=== PATIENT | female | born 1995 | race Caucasian/White ===

== ENCOUNTER 2018-01-08 13:31 | Emergency (ER) | payer OTHER ==
[~2018-01-08] VITALS: Ht 172.7 cm; Wt 61.4 kg
[~2018-01-08 13:31] MED LIST: RITALIN PO
[2018-01-08] MEDS ORDERED: IBUPROFEN 600 MG TABLET PO ONE (14:45)
[2018-01-08 15:15] VITALS: BP 120/80
== END 2018-01-08 16:01 | disposition home or self-care (01) ==
LOC: EMS 13:32
DX: S62.306A Unspecified fracture of fifth metacarpal bone, right hand, initial encounter for closed fracture (principal); Y04.0XXA Assault by unarmed brawl or fight, initial encounter; Y93.89 Activity, other specified; Y92.89 Other specified places as the place of occurrence of the external cause; Y99.8 Other external cause status

== ENCOUNTER 2019-11-01 11:15 | Inpatient (IN) | payer MEDICAID, OTHER ==
[~2019-11-01] VITALS: Ht 170.2 cm; Wt 93.0 kg
[2019-11-01] MEDS ORDERED: DULO30CA96 PO (11:24)
[2019-11-01] MEDS ORDERED: QUET100T PO (11:24)
[2019-11-01] MEDS ORDERED: PRAZ2 PO (11:24)
[2019-11-01] MEDS ORDERED: GABA-1181 PO (11:24)
[2019-11-01] MEDS ORDERED: CefTRIAXone SODIUM 1 GM/VIAL IM ONE (11:45)
[2019-11-01] MEDS ORDERED: AZITHROMYCIN 500 MG TABLET PO ONE (11:45)
[2019-11-01] MEDS ORDERED: ONDANSETRON HCL 4 MG TABLET PO ONE (11:45)
[2019-11-01] MEDS ORDERED: LIDOCAINE/PF 1% 2 ML VIAL ONE (11:57)
[2019-11-01 12:15] LABS: BASOPHILS % (AUTO) 0.4 % (0.0-2.0); EOSINOPHILS % (AUTO) 0.4 % (1.0-6.0); HEMATOCRIT 38.2 % (36-46); HEMOGLOBIN 12.5 g/dL (12.0-16.0); MEAN CORPUSCULAR HEMOGLOBIN 29.5 pg (26.0-34.0); MEAN CORPUSCULAR HGB CONC 32.7 G/dL (31.0-37.0); MEAN CORPUSCULAR VOLUME 90 fL (80-100); MONOCYTES # (AUTO) 0.4 K/uL (0.1-1.0); MONOCYTES % (AUTO) 7.4 % (2.0-9.0); NEUTROPHILS # (AUTO) 3.9 K/uL (1.8-7.7); NEUTROPHILS % (AUTO) 73.8 % (40.0-70.0); PLATELET COUNT (AUTO) 354 K/uL (150-450); RED BLOOD CELL COUNT(AUTO) 4.22 MIL/uL (4.00-5.20); RED CELL DISTRIBUTION WIDTH 15.8 % (11.5-14.5)
[2019-11-01 12:25] LABS: ANION GAP 12 mmol/L (8-16); CALCIUM, TOTAL 9.3 mg/dL (8.8-10.5); CARBON DIOXIDE 28 mmol/L (22-29); CHLORIDE 98 mmol/L (98-107); CREATININE 1.08 mg/dL (0.60-1.30); GLOMERULAR FILTR. RATE CALC > 60 mL/min (>60); GLUCOSE,RANDOM 104 mg/dL (70-110); POTASSIUM 3.7 mmol/L (3.5-5.1); SODIUM SERUM 138 mmol/L (136-145); UREA NITROGEN, BLOOD 6 mg/dL (7-18)
[2019-11-01 12:39] LABS: ALANINE AMINOTRANSFERASE 24 U/L (12-78); ALBUMIN 4.1 g/dL (3.4-5.0); ALKALINE PHOSPHATASE 77 U/L (46-116); ASPARTATE AMINOTRANSFERASE 22 U/L (15-37); BILIRUBIN,TOTAL 0.3 mg/dL (0.1-1.0); HCG,QUANTITATIVE < 1 mIU/mL (0-6); TOTAL PROTEIN, SERUM 8.3 g/dL (6.4-8.2)
[2019-11-01 14:11] LABS: AMPHET/METH SCREEN,URINE POSITIVE (NEGATIVE); BARBITURATE SCREEN, URINE NEGATIVE (NEGATIVE); BENZODIAZEPINES SCREEN,URINE NEGATIVE (NEGATIVE); CANNABINOID SCREEN,URINE POSITIVE (NEGATIVE); COCAINE SCREEN,URINE NEGATIVE (NEGATIVE); METHADONE SCREEN, URINE NEGATIVE (NEGATIVE); OPIATE SCREEN,URINE NEGATIVE (NEGATIVE)
[2019-11-01 14:12] LABS: PHENCYCLIDINE SCREEN,URINE NEGATIVE (NEGATIVE)
[2019-11-01] MEDS ORDERED: PROMETHAZINE HCL 25 MG TABLET PO PRN (15:15)
[2019-11-01] MEDS ORDERED: ACETAMINOPHEN 325 MG TABLET PO PRN (15:15)
[2019-11-01] MEDS ORDERED: HydrOXYzine PAMOATE 50 MG CAPSULE PO PRN (15:15)
[2019-11-01] MEDS ORDERED: TUBERCULIN, PURIFIED PROTEIN DERIVATIVE 5 TU/0.1 ML SYRINGE ID ONE (15:15)
[2019-11-01] MEDS ORDERED: MAGNESIUM HYDROXIDE SUSPENSION 30 ML UDCUP PO PRN (15:15)
[2019-11-01] MEDS ORDERED: MAG HYDROX/AL HYDROX/SIMETH ES 30 ML SUSPENSION UDCUP PO PRN (15:15)
[2019-11-01] MEDS ORDERED: GuaiFENesin/D-METHORPHAN [SUGAR-FREE] 200-20MG/10 ML SYRUP UDCUP PO PRN (15:15)
[2019-11-01] MEDS ORDERED: OLANZapine 5 MG RAPDIS TABLET PO PRN (15:15)
[2019-11-01] MEDS ORDERED: ZOLPIDEM TARTRATE 10 MG TABLET PO PRN (15:15)
[2019-11-01] MEDS ORDERED: LOPERAMIDE HCL 2 MG CAPSULE PO PRN (15:15)
[2019-11-01] MEDS ORDERED: LORazepam 2 MG TABLET PO PRN (15:15)
[2019-11-01] MEDS: THIAMINE 100 MG TABLET PO SCH (16:21)
[2019-11-01 17:22] VITALS: BP 127/91
[2019-11-01 17:43] VITALS: BP 127/91
[2019-11-01] MEDS: NICOTINE 21 MG/24 HOUR PATCH TD SCH (20:05)
[2019-11-01] MEDS ORDERED: OLANZapine 5 MG RAPDIS TABLET PO SCH (21:00)
[2019-11-01] MEDS ORDERED: QUEtiapine FUMARATE 25 MG TABLET PO PRN (21:00)
[2019-11-01] MEDS: PRAZOSIN HCL 2 MG CAPSULE PO SCH (21:53)
[2019-11-01] MEDS: QUEtiapine FUMARATE 100 MG TABLET PO SCH (21:54)
[2019-11-01] MEDS: GABAPENTIN 300 MG CAPSULE PO SCH (21:54)
[2019-11-02 02:04] VITALS: BP 125/85
[2019-11-02 03:31] VITALS: BP 125/85
[2019-11-02 08:58] LABS: HEMOGLOBIN A1C 5.4 % (3.8-5.6)
[2019-11-02] MEDS: NICOTINE 21 MG/24 HOUR PATCH TD SCH (09:00)
[2019-11-02 09:09] VITALS: BP 102/61
[2019-11-02 09:13] LABS: CHOL/HDL RATIO 3.8 (3.9-5.7); FREE T4 (FREE THYROXINE) 1.2 ng/dL (0.76-1.46); THYROID STIMULATING HORMONE 0.43 uIU/mL (0.36-3.74)
[2019-11-02] MEDS: MULTIVITAMINS WITH MINERALS, THERAPEUTIC TABLET PO SCH (10:59)
[2019-11-02] MEDS: THIAMINE 100 MG TABLET PO SCH ×2 (10:59→16:29)
[2019-11-02] MEDS: FLUoxetine HCL 20 MG CAPSULE PO SCH (10:59)
[2019-11-02] MEDS: NALTREXONE HCL 50 MG TABLET PO SCH (10:59)
[2019-11-02] MEDS: GABAPENTIN 300 MG CAPSULE PO SCH ×4 (10:59→20:22)
[2019-11-02] MEDS: FOLIC ACID 1 MG TABLET PO SCH (10:59)
[2019-11-02] MEDS: QUEtiapine FUMARATE 25 MG TABLET PO SCH ×3 (11:00→16:30)
[2019-11-02 16:00] VITALS: BP 106/53
[2019-11-02] MEDS: PRAZOSIN HCL 2 MG CAPSULE PO SCH (20:22)
[2019-11-02] MEDS: QUEtiapine FUMARATE 100 MG TABLET PO SCH (20:22)
[2019-11-03 08:11] VITALS: BP 119/78
[2019-11-03] MEDS: NICOTINE 21 MG/24 HOUR PATCH TD SCH ×2 (09:00→17:25)
[2019-11-03] MEDS: NALTREXONE HCL 50 MG TABLET PO SCH (10:43)
[2019-11-03] MEDS: THIAMINE 100 MG TABLET PO SCH ×2 (10:43→17:16)
[2019-11-03] MEDS: FOLIC ACID 1 MG TABLET PO SCH (10:43)
[2019-11-03] MEDS: FLUoxetine HCL 20 MG CAPSULE PO SCH (10:43)
[2019-11-03] MEDS: MULTIVITAMINS WITH MINERALS, THERAPEUTIC TABLET PO SCH (10:44)
[2019-11-03] MEDS: GABAPENTIN 400 MG CAPSULE PO SCH ×3 (10:44→17:16)
[2019-11-03] MEDS: QUEtiapine FUMARATE 25 MG TABLET PO SCH ×3 (10:44→17:16)
[2019-11-03 16:13] VITALS: BP 115/75
[2019-11-03] MEDS: QUEtiapine FUMARATE 100 MG TABLET PO SCH (21:29)
[2019-11-03] MEDS: PRAZOSIN HCL 2 MG CAPSULE PO SCH (21:29)
[2019-11-03] MEDS: GABAPENTIN 300 MG CAPSULE PO SCH (21:29)
[2019-11-04 08:00] VITALS: BP 112/70
[2019-11-04] MEDS: MULTIVITAMINS WITH MINERALS, THERAPEUTIC TABLET PO SCH (09:04)
[2019-11-04] MEDS: FOLIC ACID 1 MG TABLET PO SCH (09:04)
[2019-11-04] MEDS: THIAMINE 100 MG TABLET PO SCH ×2 (09:04→16:20)
[2019-11-04] MEDS: NALTREXONE HCL 50 MG TABLET PO SCH (09:05)
[2019-11-04] MEDS: FLUoxetine HCL 20 MG CAPSULE PO SCH (09:05)
[2019-11-04] MEDS: QUEtiapine FUMARATE 25 MG TABLET PO SCH ×3 (09:05→16:20)
[2019-11-04] MEDS: GABAPENTIN 400 MG CAPSULE PO SCH ×3 (09:05→16:20)
[2019-11-04] MEDS: NICOTINE 21 MG/24 HOUR PATCH TD SCH (09:07)
[2019-11-04 16:55] VITALS: BP 117/78
[2019-11-04] MEDS ORDERED: GABA-1181 PO (18:24)
[2019-11-04] MEDS ORDERED: FLUO-191 PO (18:24)
[2019-11-04] MEDS ORDERED: GABA-1201 PO (18:24)
[2019-11-04] MEDS ORDERED: NALT50TA PO (18:24)
[2019-11-04] MEDS ORDERED: QUET25TA34 PO (18:24)
[2019-11-04] MEDS ORDERED: QUET100T33 PO (18:24)
[2019-11-04] MEDS: GABAPENTIN 300 MG CAPSULE PO SCH (21:10)
[2019-11-04] MEDS: QUEtiapine FUMARATE 100 MG TABLET PO SCH (21:10)
[2019-11-04] MEDS: PRAZOSIN HCL 2 MG CAPSULE PO SCH (21:10)
[2019-11-05 08:00] VITALS: BP 122/71
[2019-11-05] MEDS: GABAPENTIN 400 MG CAPSULE PO SCH ×2 (10:01→13:00)
[2019-11-05] MEDS: FOLIC ACID 1 MG TABLET PO SCH (10:01)
[2019-11-05] MEDS: THIAMINE 100 MG TABLET PO SCH (10:01)
[2019-11-05] MEDS: FLUoxetine HCL 20 MG CAPSULE PO SCH (10:01)
[2019-11-05] MEDS: QUEtiapine FUMARATE 25 MG TABLET PO SCH ×2 (10:01→13:00)
[2019-11-05] MEDS: MULTIVITAMINS WITH MINERALS, THERAPEUTIC TABLET PO SCH (10:01)
[2019-11-05] MEDS: NALTREXONE HCL 50 MG TABLET PO SCH (10:03)
[2019-11-05] MEDS: NICOTINE 21 MG/24 HOUR PATCH TD SCH (10:03)
[2019-11-05] MEDS ORDERED: PRAZ2 PO (11:46)
== END 2019-11-05 13:30 | disposition home or self-care (01) | DRG 885 ==
LOC: EMS 11:18 → 3EI 13:24 → UNDOADMIN 13:24 → 3EI 15:04
PROVIDERS: ADMIT Psychiatry & Neurology Psychiatry; ATTEND Psychiatry & Neurology Psychiatry
DX: F25.9 Schizoaffective disorder, unspecified (principal); R45.851 Suicidal ideations; D64.9 Anemia, unspecified; F12.90 Cannabis use, unspecified, uncomplicated; F15.10 Other stimulant abuse, uncomplicated; F17.210 Nicotine dependence, cigarettes, uncomplicated; F43.10 Post-traumatic stress disorder, unspecified; G40.909 Epilepsy, unspecified, not intractable, without status epilepticus; I10 Essential (primary) hypertension; Z91.19 Patient's noncompliance with other medical treatment and regimen; Z91.5 Personal history of self-harm
CPT/HCPCS: 80074; 83036; 84439; 84443; 86592; 87491; 87591; 93005; G0480; J0696; J3490; Q0162

== ENCOUNTER 2021-06-03 07:09 | Emergency (ER) | payer MEDICAID, OTHER ==
[~2021-06-03] VITALS: Ht 170.2 cm; Wt 86.4 kg
[~2021-06-03 07:09] MED LIST changes: +FLUO-191 PO; +GABA-1181 PO; +GABA-1201 PO; +NALT50TA PO; +PRAZ2 PO; +QUET100T34 PO; +QUET25TA36 PO; -RITALIN PO
[2021-06-03] MEDS ORDERED: LORazepam 1 MG TABLET PO ONE (07:30)
[2021-06-03] MEDS ORDERED: ONDANSETRON HCL 4 MG TABLET PO ONE (07:45)
[2021-06-03 08:17] VITALS: BP 132/81
== END 2021-06-03 09:11 | disposition home or self-care (01) ==
LOC: EMS 07:12
DX: F41.9 Anxiety disorder, unspecified (principal); F15.10 Other stimulant abuse, uncomplicated; F20.9 Schizophrenia, unspecified; F90.9 Attention-deficit hyperactivity disorder, unspecified type; F12.90 Cannabis use, unspecified, uncomplicated; Z86.69 Personal history of other diseases of the nervous system and sense organs; Z86.59 Personal history of other mental and behavioral disorders
CPT/HCPCS: 99283; Q0162